=== PATIENT | male | born 1980 | race Caucasian/White ===

== ENCOUNTER 2021-08-22 21:17 | Inpatient (IN) | payer MEDICAID ==
[~2021-08-22] VITALS: Ht 170.2 cm; Wt 68.0 kg
[2021-08-22 21:17] VITALS: BP 135/87
--- NOTE | 2021-08-22 21:17 | NUR ---
T0 CHC , BIBA WITH C/O FLU LIKE S/S.
--- NOTE | 2021-08-22 21:30 | NUR ---
SEEN AND EXAMINED BY ROBBI WITH ORDERS AND CARRIED OUT.
[2021-08-22] MEDS ORDERED: NACL 0.9% 1,000 ML IV ONE (21:35)
[2021-08-22] MEDS ORDERED: ACETAMINOPHEN EXTRA STRENGTH 500 MG TAB PO ONE (21:35)
[2021-08-22 22:44] LABS: BASOPHILS % (AUTO) 0.1 % (0.0-2.0); EOSINOPHILS # (AUTO) 0.1 K/uL (0-0.4); EOSINOPHILS % (AUTO) 0.7 % (0.0-4.0); HEMATOCRIT 38.7 % (36-52); HEMOGLOBIN 13.3 g/dL (12.0-18.0); LYMPHOCYTES # (AUTO) 0.5 K/uL (2.0-11.5); LYMPHOCYTES % (AUTO) 3.4 % (20.5-51.1); MEAN CORPUSCULAR HEMOGLOBIN 29 pg (27-31); MEAN CORPUSCULAR HGB CONC 34 g/dL (33-37); MEAN CORPUSCULAR VOLUME 84.8 fL (80-94); MONOCYTES # (AUTO) 0.6 K/uL (0.8-1.0); NEUTROPHILS # (AUTO) 13.9 K/uL (1.8-7.7); NEUTROPHILS % (AUTO) 91.8 % (42.2-75.2); PLATELET COUNT (AUTO) 436 K/uL (140-450); RED BLOOD CELL COUNT(AUTO) 4.56 MIL/uL (4.20-6.10); RED CELL DISTRIBUTION WIDTH 13.8 % (11.6-13.7); WHITE BLOOD COUNT (AUTO) 15.1 K/uL (4.8-10.8)
--- NOTE | 2021-08-22 22:45 | NUR ---
SENT FOR XRAY VIA FATOUMATARBRYAN WITH THE TECH
[2021-08-22 22:52] LABS: APPEARANCE,URINE CLEAR (CLEAR); BILIRUBIN,URINE 1+ (NEGATIVE); BLOOD, URINE NEGATIVE (NEGATIVE); COLOR,URINE YELLOW (YELLOW); LEUKOCYTE ESTERASE ,URINE NEGATIVE (NEGATIVE); NITRITE, URINE NEGATIVE (NEGATIVE); UGLUCOSE TRACE (NEGATIVE)
[2021-08-22 23:02] LABS: ALBUMIN 1.8 g/dL (3.4-5.0); ANION GAP 10.4 (8-16); ASPARTATE AMINOTRANSFERASE 15 U/L (15-37); CARBON DIOXIDE 26.3 mmol/L (21-32); CHLORIDE 101 mmol/L (98-107); CREATININE 0.9 mg/dL (0.6-1.3); GFR ARICAN-AMERICAN 121 mL/min (>90); GLUCOSE 227 mg/dL (74-106); LIPASE 65 U/L (73-393); POTASSIUM 3.7 mmol/L (3.5-5.1); SODIUM SERUM 134 mmol/L (136-145); TOTAL BILIRUBIN 0.7 mg/dL (0.0-1.0); UREA NITROGEN, BLOOD 25 mg/dL (7-18)
[2021-08-22 23:15] LABS: BARBITURATE, URINE NEGATIVE ng/ml (NEG <=200); BENZODIAZEPINE, URINE NEGATIVE ng/mL (NEG <=200); CANNABINOID, URINE NEGATIVE ng/mL (NEG <=50); COCAINE, URINE NEGATIVE ng/mL (NEG <=300); OPIATE, URINE NEGATIVE ng/mL (NEG <=2000); PHENCYCLIDINE SCREEN,URINE NEGATIVE ng/mL (NEG <=25)
[2021-08-23] MEDS ORDERED: DEXAMETHASONE 10 MG/ML VIAL IVP ONE (00:40)
[2021-08-23] MEDS ORDERED: VANCOMYCIN 1,000 MG in DEXTROSE 5% 250 ML IV ONE (00:40)
[2021-08-23] MEDS ORDERED: PIPERACILLIN/TAZOBACTAM 3.375 GM in DEXTROSE 5% 50 ML IV ONE (00:40)
[2021-08-23] MEDS ORDERED: NACL 0.9% 1,000 ML IV ONE (00:40)
[2021-08-23] MEDS ORDERED: PIPERACILLIN/TAZOBACTAM 3.375 GM VIAL IV ONE ×3 (01:01→18:06)
[2021-08-23] MEDS ORDERED: VANCOMYCIN 1,000 MG VIAL ONE (01:02)
[2021-08-23] MEDS ORDERED: LORazepam 1 MG TAB PO ONE (01:10)
--- NOTE | 2021-08-23 03:00 | NUR ---
ALL RESULTS BACK AND NOTED BY ERMD AND FOR ADMISSION.
[2021-08-23] MEDS ORDERED: ZOLPIDEM 5 MG TAB PO PRN (08:40)
[2021-08-23] MEDS ORDERED: HYDROcodone/APAP 7.5/325 MG 1 TAB PO PRN (08:40)
[2021-08-23] MEDS ORDERED: POTASSIUM CHLORIDE 10 MEQ TABER PO PRN (08:40)
[2021-08-23] MEDS: NACL 0.9% 1,000 ML IV SCH ×2 (08:40→20:22)
[2021-08-23] MEDS ORDERED: ACETAMINOPHEN 325 MG TAB PO PRN (08:40)
[2021-08-23] MEDS ORDERED: ONDANSETRON 4 MG/2 ML VIAL IM/IVP PRN (08:40)
[2021-08-23] MEDS ORDERED: DOCUSATE SODIUM 100 MG GELCAP PO PRN (08:40)
[2021-08-23] MEDS: PANTOPRAZOLE 40 MG TABEC PO SCH (09:36)
[2021-08-23] MEDS: PIPERACILLIN/TAZOBACTAM 3.375 GM in DEXTROSE 5% 50 ML IV SCH ×3 (10:23→18:19)
[2021-08-23 11:41] LABS: PROTHROMBIN TIME 10.9 secs (10.8-13.4)
[2021-08-23] MEDS ORDERED: ALBUTEROL SULFATE/IPRATROPIU 3 ML SOL IH PRN (11:50)
[2021-08-23 11:51] LABS: FREE T4 (FREE THYROXINE) 1.25 ng/dL (0.76-1.46); MAGNESIUM 1.8 mg/dL (1.8-2.4); PHOSPHORUS 4.1 mg/dL (2.5-4.9); THYROID STIMULATING HORMONE 0.23 uIU/mL (0.34-3.74)
[2021-08-23] MEDS: ALBUTEROL SULFATE/IPRATROPIU 3 ML SOL IH SCH ×2 (12:04→19:00)
--- NOTE | 2021-08-23 12:15 | NUR ---
PT PROVIDED WITH LUNCH . PT AWAKE AND EATING IN BED
--- NOTE | 2021-08-23 13:10 | NUR ---
PT SWABBED FOR RSV. SPECIMEN WALKED TO LAB
--- NOTE | 2021-08-23 13:24 | NUR ---
PATIENT HAS BEEN SCREENED AND CATEGORIZED MODERATE NUTRITION RISK. PATIENT WILL BE SEEN WITHIN 3-5 DA[address] OF ADMISSION. ABILIO [address]
--- NOTE | 2021-08-23 17:34 | NUR ---
PT AT REST AND SLEEPING
--- NOTE | 2021-08-23 18:30 | NUR ---
PT PROVIDED WITH DINNER. PT AWAKE AND EATING IN BED
--- NOTE | 2021-08-23 18:47 | NUR ---
Judah mario in [facility] - 08/23/21 at 1848 by PHSEP PT PROVIDED WITH FANNY VÁQZUEZ AT BEDSIDE
--- NOTE | 2021-08-23 19:21 | NUR ---
REPORT GIVEN TO FATUMA HARRISON. ALL QUESTIONS ANSWERED. TRANSFER OF CARE AT THIS TIME
--- NOTE | 2021-08-23 19:48 | NUR ---
PT WAS TRANSPORTED VIA GURNEY. PT CAME IN TO ER FOR PRODUCTIVE COUGH, GENERAL WEAKNESS, N/V/D. PT IS AAOX4 FRISIAN SPEAKER ON 2L NC. PT IS SATING 98%. PT IS AMBULATORY BUT WITH ASSIST SINCE PT IS FEELING WEAK. PT HAS LEFT AC 20 GAUGE WITH NS 100 ML/HR. SKIN INTACT. CRACKLES HEARD ON LUNG FIELD. NO HEART MURMUR. ABD SOFT AND NON-TENDER. PT EDUCATED CHANNEL MANAGER LIGHT SYSTEM. PT DENIES ANY PAIN AND HAS NO COMPLAINS AT THIS TIME. PLAN OF CARE DISCUSSED. CALL LIGHT WITHIN REACH. ALL SAFETY MEASURES TAKEN. WILL CONTINUE TO MONITOR THE PT.
--- NOTE | 2021-08-23 19:55 | NUR ---
Patient will be admitted to care of DR PATTERSON. Admited to TELE. Will go to room 112A. Belongings list completed. Report to HUNTER LINTON.
[2021-08-23 20:00] VITALS: BP 129/83
[2021-08-24] VITALS: BP 121/74
[2021-08-24] MEDS ORDERED: PIPERACILLIN/TAZOBACTAM 3.375 GM VIAL IV ONE ×2 (00:04→06:14)
[2021-08-24] MEDS: PIPERACILLIN/TAZOBACTAM 3.375 GM in DEXTROSE 5% 50 ML IV SCH ×2 (00:44→06:37)
--- NOTE | 2021-08-24 00:50 | NUR ---
PATIENT WAS GIVEN 0000 MEDICATION. PATIENT WAS LYING IN BED AWAKE WITH NS RUNNING AT 100 ML/HR. PATIENT WAS AWAKE AND ORIENTED X4. BED IS IN LOWEST POSITION. WHEELS ARE LOCKED. WILL CONTINUE TO MONITOR.
--- NOTE | 2021-08-24 02:00 | NUR ---
PT IV GOT INFILTRATED. PT GOT NEW IV ON LEFT HAND 24 GAUGE. PT DENIES ANY PAIN AND HAS NO COMPLAINS. STILL ON NC 2L. WILL CONTINUE TO MONITOR THE PT.
[2021-08-24 04:00] VITALS: BP 119/73
[2021-08-24] MEDS: NACL 0.9% 1,000 ML IV SCH ×2 (05:03→14:20)
--- NOTE | 2021-08-24 07:00 | NUR ---
NEW INSERTED ON RIGHT HAND 22 GAUGE. PATENT AND INTACT
[2021-08-24] MEDS: ALBUTEROL SULFATE/IPRATROPIU 3 ML SOL IH SCH ×3 (07:30→19:59)
--- NOTE | 2021-08-24 07:30 | NUR ---
RECEIVED REPORT FROM PM NURSE. PATIENT IS AWAKE, AOX4. ON 2L O2 . NO S/S OF RESPIRATORY DISTRESS. BREATHING REGULAR NON LABORED. NO C/O PAIN. WITH RH 22G RUNNING NS AT 100CC/HR. ALL SAFETY PRECAUTIONS ARE IN PLACE. BED IN SEMI FOWLERS POSITION, WHEELS LOCKED. WILL CONTINUE TO MONITOR.
--- NOTE | 2021-08-24 07:30 | NUR ---
ENDORSED TO MORNING SHIFT FOR CONTINUITY OF CARE. PATIENT IS STABLE.
[2021-08-24 07:31] LABS: ANION GAP 12.5 (8-16); CARBON DIOXIDE 25.5 mmol/L (21-32); CREATININE 0.7 mg/dL (0.6-1.3)
[2021-08-24 07:34] LABS: BASOPHILS % (AUTO) 0.1 % (0.0-2.0); HEMATOCRIT 38.1 % (36-52); HEMOGLOBIN 12.8 g/dL (12.0-18.0); LYMPHOCYTES # (AUTO) 0.8 K/uL (2.0-11.5); LYMPHOCYTES % (AUTO) 6.1 % (20.5-51.1); MEAN CORPUSCULAR HEMOGLOBIN 29 pg (27-31); MEAN CORPUSCULAR HGB CONC 34 g/dL (33-37); MEAN CORPUSCULAR VOLUME 85.1 fL (80-94); MONOCYTES % (AUTO) 7.4 % (1.7-9.3); NEUTROPHILS % (AUTO) 86.4 % (42.2-75.2); PLATELET COUNT (AUTO) 405 K/uL (140-450); RED BLOOD CELL COUNT(AUTO) 4.48 MIL/uL (4.20-6.10); RED CELL DISTRIBUTION WIDTH 14.2 % (11.6-13.7); WHITE BLOOD COUNT (AUTO) 13.9 K/uL (4.8-10.8)
[2021-08-24 08:00] VITALS: BP 123/88
[2021-08-24] MEDS ORDERED: VANCOMYCIN PER PHARMACY MC PRN (08:00)
[2021-08-24 08:07] LABS: T4 (THYROXINE) 6.3 ug/dL (4.5-12.0)
--- NOTE | 2021-08-24 09:00 | NUR ---
DUE MEDS GIVEN. TOLERATED WELL
[2021-08-24] MEDS: PANTOPRAZOLE 40 MG TABEC PO SCH (09:02)
--- NOTE | 2021-08-24 09:30 | NUR ---
SEEN AND EXAMINED BY DR MACK. NEW ORDERS NOTED
--- NOTE | 2021-08-24 10:30 | NUR ---
SPUTUM CULTURE AND PCR SPECIMEN COLLECTED AND SENT TO LAB
[2021-08-24] MEDS: VANCOMYCIN 750 MG in DEXTROSE 5% 250 ML IV SCH ×2 (10:59→17:00)
--- NOTE | 2021-08-24 12:30 | NUR ---
PT AWAKE, RESTING IN BED, NO COMPLAINTS AT THIS TIME
--- NOTE | 2021-08-24 15:21 | NUR ---
PT ASLEEP IN BED, NO APPARENT DISTRESS
[2021-08-24 16:00] VITALS: BP 123/85
--- NOTE | 2021-08-24 19:05 | NUR ---
RECEIVED ENDORSEMENT FROM HUNTER PERKINS FOR CONTINUITY OF CARE. PT IS AWAKE AND STABLE. A&OX4. MALAWIAN SPEAKING BUT CAN COMMUNICATE IN [place]. VERBALLY RESPONSIVE AND ABLE TO COMMUNICATE NEEDS. ON 2L VIA NC W NO APPARENT S/SX OF ACUTE DISTRESS. RESPIRATIONS EVEN AND UNLABORED. DENIES PAIN. IV SITE TO THE RH22G AND LH24G INTACT/PATENT W NS INFUSING AT 100 ML/HR. CONTINENT OF VOID AND BM. PLAN OF CARE AND COMMUNICATION BOARD UPDATED. ALL SAFETY MEASURES IN PLACE. BED IN LOW/LOCKED POSITION. CALL LIGHT WITHIN REACH. WILL CONTINUE TO MONITOR.
[2021-08-24 20:00] VITALS: BP 130/90
--- NOTE | 2021-08-24 20:00 | NUR ---
Patient's Plan of Care was discussed and reviewed with ASSEMBLER CARBON BRUSHES: TAMMY LEE
--- NOTE | 2021-08-24 21:20 | NUR ---
CHANGED PT'S IVF BAG. TOLERATED WELL. DENIES PAIN. PROVIDED SNACKS PER PT REQUEST. RESPIRATIONS EVEN AND UNLABORED W NO APPARENT S/SX OF ACUTE DISTRESS. COMMUNICATION BOARD UPDATED. ALL SAFETY MEASURES IN PLACE. CALL LIGHT WITHIN REACH. WILL CONTINUE TO MONITOR.
--- NOTE | 2021-08-24 23:20 | NUR ---
PT'S IV CATHETER DISLODGED. REINSERTED 20G ON LFA. TOLERATED WELL. DENIES PAIN AT THIS TIME. PROVIDED SNACK PER PT REQUEST. RESPIRATIONS EVEN AND UNLABORED W NO APPARENT S/SX OF ACUTE DISTRESS. COMMUNICATION BOARD UPDATED. ALL SAFETY MEASURES IN PLACE. CALL LIGHT WITHIN REACH. WILL CONTINUE TO MONITOR.
[2021-08-25] MEDS: NACL 0.9% 1,000 ML IV SCH ×3 (00:42→21:00)
[2021-08-25] MEDS: guaiFENesin DM 200/20 MG-10 ML 10 ML UDC PO PRN ×2 (01:13→17:57)
--- NOTE | 2021-08-25 01:20 | NUR ---
ANSWERED CALL LIGHT. PT COMPLAINING OF COUGH. MEDICATED WITH PRN ROBITUSSIN. TOLERATED WELL. DENIES PAIN AT THIS TIME. RESPIRATIONS EVEN AND UNLABORED W NO APPARENT S/SX OF ACUTE DISTRESS. COMMUNICATION BOARD UPDATED. ALL SAFETY MEASURES IN PLACE. CALL LIGHT WITHIN REACH. WILL CONTINUE TO MONITOR.
[2021-08-25] MEDS: VANCOMYCIN 750 MG in DEXTROSE 5% 250 ML IV SCH (01:36)
--- NOTE | 2021-08-25 03:20 | NUR ---
PT IS STABLE AND ASLEEP W HOB IN SEMI-FOWLERS POSITION. CHEST IS RISING AND FALLING SYMMETRICALLY. RESPIRATIONS EVEN AND UNLABORED W NO APPARENT S/SX OF ACUTE DISTRESS. COMMUNICATION BOARD UPDATED. ALL SAFETY MEASURES IN PLACE. CALL LIGHT WITHIN REACH. WILL CONTINUE TO MONITOR.
[2021-08-25 04:00] VITALS: BP 134/68
--- NOTE | 2021-08-25 05:20 | NUR ---
CHANGED PT'S IVF BAG. TOLERATED WELL. PT REMAINS ASLEEP AND STABLE. CHEST IS RISING AND FALLING EVENLY W NO APPARENT S/SX OF ACUTE DISTRESS. RESPIRATIONS EVEN AND UNLABORED. ALL NEEDS MET AT THIS TIME. COMMUNICATION BOARD UPDATED. ALL SAFETY MEASURES IN PLACE. CALL LIGHT WITHIN REACH. WILL CONTINUE TO MONITOR.
--- NOTE | 2021-08-25 07:20 | NUR ---
ENDORSED PT TO HUNTER WOOTEN FOR CONTINUITY OF CARE. PT IS STABLE.
[2021-08-25] MEDS: ALBUTEROL SULFATE/IPRATROPIU 3 ML SOL IH SCH ×3 (07:25→19:23)
--- NOTE | 2021-08-25 07:35 | NUR ---
RECEIVED REPORT FROM MANAGER MANAGING NURSE: PATIENT RECEIVED ASLEEP BUT EASILY AROUSED--ALERT AND ORIENTED WHEN AROUSED. PATIENT IS BREATHING EFFORTLESSLY USING O2 AT 2L VIA NC. IVF NS INFUSING VIA LEFT FOREARM SITE, AT 10O ML/HOUR. WILL CONTINUE PLAN OF CARE AND MAINTAIN SAFETY.
[2021-08-25] MEDS: PANTOPRAZOLE 40 MG TABEC PO SCH (08:43)
[2021-08-25 09:05] LABS: CARBON DIOXIDE 27.7 mmol/L (21-32); CREATININE 0.6 mg/dL (0.6-1.3); POTASSIUM 3.7 mmol/L (3.5-5.1)
--- NOTE | 2021-08-25 09:20 | NUR ---
PATIENT VERBALIZES COMFORT AND DENIES PAIN. CONTINUES TO BREATHE EFFORTLESSLY ON O2 T 2L VIA NC.
[2021-08-25] MEDS: VANCOMYCIN 1,000 MG in DEXTROSE 5% 250 ML IV SCH ×2 (10:38→17:50)
--- NOTE | 2021-08-25 10:40 | NUR ---
AM MEDS ADMIN ORDERED. CONTINUES TO DENY PAIN. NO COUGHING.
[2021-08-25 12:00] VITALS: BP 126/86
--- NOTE | 2021-08-25 17:57 | NUR ---
PATIENT REPORTED BOUT OF NONPRODUCTIVE COUGHING--SAME NOT OBSERVED--AND REQUESTED "COUGH MEDICINE." PATIENT ALSO REPORTED PAIN OF 6/10 UPON COUGHING. NORCO ADMIN FOR PAIN AND AAMIR ADMIN FOR COUGH, ORDERED. WILL CONTINUE TO MONITOR PATIENT.
--- NOTE | 2021-08-25 18:10 | NUR ---
VERBALIZED RELIEF FROM COUGH AND PAIN. VERBALIZED COMFORT.
[2021-08-25 18:37] LABS: HEMOGLOBIN 12.5 g/dL (12.0-18.0); MEAN CORPUSCULAR VOLUME 86.5 fL (80-94)
[2021-08-25 18:40] LABS: BASOPHILS # (AUTO) 0.1 K/uL (0.00-0.22); BASOPHILS % (AUTO) 1.6 % (0.0-2.0); EOSINOPHILS % (AUTO) 0.5 % (0.0-4.0); HEMATOCRIT 37.6 % (36-52); LYMPHOCYTES # (AUTO) 1.6 K/uL (2.0-11.5); LYMPHOCYTES % (AUTO) 17.6 % (20.5-51.1); MEAN CORPUSCULAR HEMOGLOBIN 29 pg (27-31); MEAN CORPUSCULAR HGB CONC 33 g/dL (33-37); MONOCYTES # (AUTO) 0.5 K/uL (0.8-1.0); MONOCYTES % (AUTO) 5.8 % (1.7-9.3); NEUTROPHILS # (AUTO) 6.6 K/uL (1.8-7.7); NEUTROPHILS % (AUTO) 74.5 % (42.2-75.2); PLATELET COUNT (AUTO) 420 K/uL (140-450); RED BLOOD CELL COUNT(AUTO) 4.35 MIL/uL (4.20-6.10); RED CELL DISTRIBUTION WIDTH 14.2 % (11.6-13.7); WHITE BLOOD COUNT (AUTO) 8.8 K/uL (4.8-10.8)
--- NOTE | 2021-08-25 19:25 | NUR ---
PLAN OF CARE CONTINUED AND SAFETY MAINTAINED. PATIENT CONTINUES TO BREATHE EFFORTLESSLY USING O2 AT 2L VIA NC. ENDORSED PATIENT TO MACHINE PACKAGING TECHNICIAN NURSE.
[2021-08-25 20:00] VITALS: BP 118/82
[2021-08-25] MEDS ORDERED: methylPREDNISolone SS 125 MG/2 ML VIAL ONE (22:48)
[2021-08-25] MEDS: methylPREDNISolone SS 125 MG/2 ML VIAL IVP SCH (22:56)
[2021-08-26] MEDS: methylPREDNISolone SS 125 MG/2 ML VIAL IVP SCH ×2 (00:06→05:25)
--- NOTE | 2021-08-26 00:06 | NUR ---
0004 PRN HHNTX GIVEN TO PATIENT. PATIENT HAS MILD EXP WHEEZE
[2021-08-26] MEDS: VANCOMYCIN 1,000 MG in DEXTROSE 5% 250 ML IV SCH ×3 (01:31→18:22)
[2021-08-26 05:28] VITALS: BP 130/95
[2021-08-26] MEDS: ALBUTEROL SULFATE/IPRATROPIU 3 ML SOL IH SCH ×3 (07:32→18:57)
--- NOTE | 2021-08-26 08:00 | NUR ---
GOT REPORT FROM THE NIGHT NURSE , PT IS SLEEPING.BATHING IS NOT LABORED. [id number]
[2021-08-26 09:16] LABS: CARBON DIOXIDE 28.4 mmol/L (21-32); CREATININE 0.6 mg/dL (0.6-1.3); POTASSIUM 4.4 mmol/L (3.5-5.1)
[2021-08-26 09:17] LABS: BASOPHILS % (AUTO) 0.1 % (0.0-2.0); HEMATOCRIT 40.5 % (36-52); HEMOGLOBIN 13.7 g/dL (12.0-18.0); LYMPHOCYTES # (AUTO) 0.5 K/uL (2.0-11.5); LYMPHOCYTES % (AUTO) 6.5 % (20.5-51.1); MEAN CORPUSCULAR HEMOGLOBIN 28 pg (27-31); MEAN CORPUSCULAR HGB CONC 34 g/dL (33-37); MEAN CORPUSCULAR VOLUME 83.9 fL (80-94); MONOCYTES # (AUTO) 0.2 K/uL (0.8-1.0); MONOCYTES % (AUTO) 2.4 % (1.7-9.3); NEUTROPHILS # (AUTO) 6.5 K/uL (1.8-7.7); PLATELET COUNT (AUTO) 458 K/uL (140-450); RED BLOOD CELL COUNT(AUTO) 4.83 MIL/uL (4.20-6.10); RED CELL DISTRIBUTION WIDTH 13.8 % (11.6-13.7); WHITE BLOOD COUNT (AUTO) 7.1 K/uL (4.8-10.8)
[2021-08-26] MEDS: PANTOPRAZOLE 40 MG TABEC PO SCH (09:24)
[2021-08-26] MEDS: methylPREDNISolone SS 40 MG/ML VIAL IVP SCH ×2 (09:25→21:36)
[2021-08-26 12:59] VITALS: BP 128/86
--- NOTE | 2021-08-26 13:54 | NUR ---
08/26/21 RD INITIAL ASSESSMENT COMPLETED PLEASE REFER TO NUTRITION ASSESSMENT UNDER CARE ACTIVITY FOR ESTIMATED NUTRITIONAL NEEDS. 1. RECOMMEND CCHO 60GM DIET TOLERATED 2. MONITOR BLOOD GLUCOSE LEVELS 3. RD TO FOLLOW-UP 3-5 DAYS, MODERATE RISK ABILIO CONKLIN RD
--- NOTE | 2021-08-26 15:05 | NUR ---
DC PLANNING: THE PATIENT WAS BIBA WITH C/O BODY ACHES FEVER AND COUGH. HR 140'S, O2 SATS ON RA IN THE 80'S, T-MAX TO 101. WBC'S 15.1, LACTIC ACID 2.3, CXR SHOWS BILATERAL INFILTRATES, TOX SCREEN POSITIVE FOR AMPHETAMINES. BLOOD AND URINE CULTURES ORDERED, PATIENT STARTED ON SOLU MEDROL, VANCO, ROCEPHIN, O2 AND DUONEBS. ORDERS FOR PULMONARY AND ID CONSULTS, SPUTUM CULTURE SUBSEQUENTLY ORDERED BY ID. CM SPOKE WITH THE PATIENT AT BEDSIDE, HE STATES HE'S HOMELESS BUT USUALLY SLEEPS CLOSE TO A BRIDGE. STATES HE HAD TB LAST YEAR AND WAS GIVEN HOUSING UNTIL HE COMPLETED HIS COURSE OF TB MEDS. HE HAS NO INCOME SOURCE BUT HIS GIRLFRIEND DOES, PATIENT WASN'T VERY CLEAR ABOUT THIS. STATES HE'S BEEN HOMELESS FOR 5-10 YEARS, HE AND HIS GIRLFRIEND DO NOT HAVE CELL PHONES. STATES HE DOESN'T SEE A DOCTOR, COMES TO THE HOSPITAL WHEN HE DOESN'T FEEL WELL. THE PATIENT WOULD LIKE RESOURCES FOR SHELTERS AND INCOME, PATIENT REFERRED TO THE FOR THIS. CM WILL FOLLOW.
--- NOTE | 2021-08-26 16:30 | NUR ---
DISCHARGE PLANNING PATIENT IS A 40 YEAR OLD MALE ADMITTED IN THE [facility]/ED ON 08/23/2021 DUE TO RECENT INFLUENZA INFECTION WITH COUGH THAT STARTED ABOUT 10 DAYS AGO. PATIENT ALSO REPORTED HAVING FEVER AND ADMITS TO USING AMPHETAMINE ALSO ABOUT 10 DAYS AGO. PATIENT HAS HX. OF DX TB ABOUT A YEAR AGO HE WAS HOSPITALIZED AND TREATED WITH MEDICATIONS FOR A YEAR. SW MET WITH PATIENT AT BEDSIDE, TO DISCUSS AND GATHER HIS COLLATERAL INFORMATION, HE WAS AWAKE AND ALERT ABLE TO PROVIDE ALL HIS INFORMATION. PER PATIENT HE IS BEEN HOMELESS FOR ABOUT 4-5 YE[place] AND USUALLY SLEEPING CLOSE TO A BRIDGE. PATIENT REPORTS NO INCOME SOURCE BUT REPORTS THAT HIS GIRLFRIEND CARIN MCDONALD HELPS HIM OUT WITH SOME MONEY AND FOOD BECAUSE SHE HAS INCOME AND HOUSING. PER PATIENT REPORTED NOT HAVING ANY A.D. AND NOT HAVING ANY SUPPORT FROM HIS FAMILY BECAUSE THEY ALL LIVE VERY FAR. PATIENT STATED THAT HIS GIRLFRIEND WILL BE HIS ONLY EMERGENCY CONTACT AND MEDICAL DECISION MAKER. PATIENT DID NOT HAVE PCP AND REPORTED THAT IF HE NEEDS A DOCTOR HE GOES TO THE HOSPITAL. PATIENT STATED THAT HE DO NOT TAKE MEDICATIONS AND WHEN PRESCRIBED HE CAN PICK THEM UP AT [facility] IN [facility]. PATIENT REPORTED BEEN INDEPENDENT AND NOT HAVING DME. [facility] PROVIDED FOR PATIENT RESOURCES FOR SHELTERS, LOW INCOME HOUSING, EMERGENCY BASIS SERVICES, SUBSTANCE ABUSE PROGRAMS AND DPSS. PATIENT THANKED [facility] FOR THE INFORMATION AND RESOURCES PROVIDED AND REPORTED THAT WHEN HE DISCHARGES HIS GIRLFRIEND WILL BE PICKING HIM UP. SW WILL FOLLOW UP NEEDED.
[2021-08-26 17:15] VITALS: BP 118/62
[2021-08-26 20:00] VITALS: BP 120/80
[2021-08-26] MEDS ORDERED: POTASSIUM CHL 20 MEQ/D5-1/2NS 1,000 ML IV ONE (22:37)
[2021-08-27] MEDS: VANCOMYCIN 1,000 MG in DEXTROSE 5% 250 ML IV SCH ×3 (01:45→18:05)
[2021-08-27 04:00] VITALS: BP 142/95
[2021-08-27 07:18] LABS: ANION GAP 9.3 (8-16); CARBON DIOXIDE 28.5 mmol/L (21-32); CREATININE 0.6 mg/dL (0.6-1.3); POTASSIUM 4.8 mmol/L (3.5-5.1)
[2021-08-27 07:22] LABS: BASOPHILS % (AUTO) 0.1 % (0.0-2.0); HEMATOCRIT 39.3 % (36-52); HEMOGLOBIN 13.5 g/dL (12.0-18.0); LYMPHOCYTES # (AUTO) 0.8 K/uL (2.0-11.5); LYMPHOCYTES % (AUTO) 7.5 % (20.5-51.1); MEAN CORPUSCULAR HEMOGLOBIN 29 pg (27-31); MEAN CORPUSCULAR HGB CONC 34 g/dL (33-37); MEAN CORPUSCULAR VOLUME 84.1 fL (80-94); MONOCYTES # (AUTO) 0.6 K/uL (0.8-1.0); MONOCYTES % (AUTO) 5.6 % (1.7-9.3); NEUTROPHILS % (AUTO) 86.8 % (42.2-75.2); PLATELET COUNT (AUTO) 486 K/uL (140-450); RED BLOOD CELL COUNT(AUTO) 4.68 MIL/uL (4.20-6.10); RED CELL DISTRIBUTION WIDTH 13.9 % (11.6-13.7); WHITE BLOOD COUNT (AUTO) 10.3 K/uL (4.8-10.8)
[2021-08-27] MEDS: ALBUTEROL SULFATE/IPRATROPIU 3 ML SOL IH SCH ×3 (07:24→19:00)
--- NOTE | 2021-08-27 07:24 | NUR ---
REPORT WAS GIVEN TO AM HUNTER SMITH TO CONTINUE WITH CARE
--- NOTE | 2021-08-27 07:31 | NUR ---
GOT REPORT FROM THE NIGHT NURSE, PT SLEEPING ,LOOKS COMFORTABLE.[id number]
[2021-08-27 08:00] VITALS: BP 115/65
[2021-08-27] MEDS: methylPREDNISolone SS 40 MG/ML VIAL IVP SCH ×2 (08:28→21:13)
[2021-08-27] MEDS: PANTOPRAZOLE 40 MG TABEC PO SCH (08:29)
[2021-08-27 12:38] VITALS: BP 142/95
--- NOTE | 2021-08-27 15:49 | NUR ---
ECHO PROCEDURE IN PROGRESS WEB MERCHANDISER TO ATTEMPT HHN THERAPY AT A LATER TIME NO DISTRESS NOTED
[2021-08-27 17:11] VITALS: BP 115/74
[2021-08-27 20:00] VITALS: BP 115/79
[2021-08-28] MEDS: VANCOMYCIN 1,000 MG in DEXTROSE 5% 250 ML IV SCH ×2 (01:25→10:09)
[2021-08-28] MEDS: guaiFENesin DM 200/20 MG-10 ML 10 ML UDC PO PRN (02:49)
[2021-08-28 04:00] VITALS: BP 111/79
--- NOTE | 2021-08-28 05:48 | NUR ---
SPENT A FAIR NIGHT NO EPIDODE OF SOB
[2021-08-28 07:21] LABS: BASOPHILS % (AUTO) 0.2 % (0.0-2.0); HEMATOCRIT 42.6 % (36-52); HEMOGLOBIN 14.8 g/dL (12.0-18.0); LYMPHOCYTES # (AUTO) 0.9 K/uL (2.0-11.5); LYMPHOCYTES % (AUTO) 11.5 % (20.5-51.1); MEAN CORPUSCULAR HEMOGLOBIN 29 pg (27-31); MEAN CORPUSCULAR HGB CONC 35 g/dL (33-37); MEAN CORPUSCULAR VOLUME 84.1 fL (80-94); MONOCYTES # (AUTO) 0.5 K/uL (0.8-1.0); MONOCYTES % (AUTO) 6.2 % (1.7-9.3); NEUTROPHILS # (AUTO) 6.7 K/uL (1.8-7.7); NEUTROPHILS % (AUTO) 82.1 % (42.2-75.2); PLATELET COUNT (AUTO) 600 K/uL (140-450); RED BLOOD CELL COUNT(AUTO) 5.07 MIL/uL (4.20-6.10); RED CELL DISTRIBUTION WIDTH 13.8 % (11.6-13.7); WHITE BLOOD COUNT (AUTO) 8.2 K/uL (4.8-10.8)
--- NOTE | 2021-08-28 07:38 | NUR ---
GOT REPORT FROM THE NIGHT NURSE. PT SLEEPING. O2 2L IN NC ON.[id number]
[2021-08-28 07:40] LABS: ANION GAP 11.6 (8-16); CARBON DIOXIDE 27.3 mmol/L (21-32); CREATININE 0.6 mg/dL (0.6-1.3); POTASSIUM 4.9 mmol/L (3.5-5.1)
[2021-08-28 08:00] VITALS: BP 115/74
[2021-08-28] MEDS: ALBUTEROL SULFATE/IPRATROPIU 3 ML SOL IH SCH ×2 (08:18→13:18)
[2021-08-28] MEDS: methylPREDNISolone SS 40 MG/ML VIAL IVP SCH (09:05)
[2021-08-28] MEDS: PANTOPRAZOLE 40 MG TABEC PO SCH (09:06)
--- NOTE | 2021-08-28 16:00 | NUR ---
PERFORMED HOME 02 EVAL. PT MAINTAINED SATURATION ABOVE 92% ON ROOM AIR. PT PLACED ON ROOM AIR AT THIS TIME.
[2021-08-28] MEDS ORDERED: LEVO-315 PO (17:13)
[2021-08-28] MEDS ORDERED: LACT1.4C PO (17:14)
[2021-08-28 18:17] VITALS: BP 91/53
--- NOTE | 2021-08-28 18:59 | NUR ---
PT DISCHARGED, DISCHARGED INSTRUCTION GIVEN , IV AND ID BAND REMOVED , PT WHEELED OUT WITH HIS FRIEND. [id number]
== END 2021-08-28 18:55 | disposition home or self-care (01) | DRG 720 ==
LOC: MED 21:17 → MTU 08-23 03:30
PROVIDERS: ADMIT Family Medicine; ATTEND Family Medicine
DX: A41.9 Sepsis, unspecified organism (principal); J96.00 Acute respiratory failure, unspecified whether with hypoxia or hypercapnia; G92.9 Unspecified toxic encephalopathy; J11.00 Influenza due to unidentified influenza virus with unspecified type of pneumonia; E43 Unspecified severe protein-calorie malnutrition; J18.9 Pneumonia, unspecified organism; E87.1 Hypo-osmolality and hyponatremia; E86.0 Dehydration; R79.89 Other specified abnormal findings of blood chemistry; E11.9 Type 2 diabetes mellitus without complications; F15.10 Other stimulant abuse, uncomplicated; Z20.822 Contact with and (suspected) exposure to COVID-19; Z86.11 Personal history of tuberculosis; Z59.00 Homelessness unspecified
CPT/HCPCS: 36415; 71045; 80048; 80053; 80202; 80305; 81003; 82150; 83036; 83605; 83690; 83735; 83880; 84100; 84436; 84439; 84443; 84479; 84484; 85025; 85610; 85730; 87040; 87070; 87081; 87086; 87205; 87420; 87635-QW; 93005; 94640; 96361; 96365; 96367; 96375; 99291; J0696; J1100; J2543; J2920; J2930; J3370; J7030; J7060; Q0092